=== PATIENT | female | born 1950 | race Caucasian/White ===

== ENCOUNTER → 2018-08-02 | Outpatient (CLI) | payer OTHER ==
[~2018-08-02] MED LIST: ADVAIR HFA 115-12 GM INH; ADVIL200 M1 PO; ALLEGRA60 MG PO; AMLODIPINE PO; BIAXIN500 MG PO; CARVEDILOL12.5 MG PO; CENTRUM SILVER1 EAC4 PO; CHEWABLE MULTI1 EAC1 PO; CLEOCIN HCL150 MG PO; COREG; DUONEB 2.5-0.5 M3 ML INH; FOLIC ACID1 MG PO; KLOR-CON 1010 MEQ PO; LEVAQUIN 500 M500 M2 PO; LEVAQUIN 750 M750 MG PO; LISINOPRIL10 MG; LISINOPRIL10 MG PO; LOPRESSOR100 M1 PO; MAGOX 400400 MG PO; MOBIC15 MG PO; MOBIC7.5 MG PO; NICOTINE TRANSD21 M1 TRANSDERM; NORCO 5-325 TA1 EACH PO; PEPCID20 MG PO; PREDNISONE 10 M10 MG PO; PREDNISONE 20 M20 MG PO; PRILOSEC40 MG PO; PRINIVIL; PRINIVIL10 MG PO; TRINATE TABLET1 TAB PO; VITAMIN B-1100 M1 PO; ZESTRIL20 MG PO
--- NOTE | 2018-08-05 12:05 | PATH ---
[address] [address] PATHOLOGY RPT PROCEDURE Name: COOPERSORAYA M Room: [facility].#: [id number] Admission: 08/02/18 Date of : 52 Discharge: Report #: [id number] Path Case #: [id number] [facility] Accession Number: [id number] . 01 Material submitted: . PART A: RIGHT BREAST STEREOTACTIC BIOPSY FOR CALCIFICATIONS PART B: RIGHT BREAST CALCIFICATIONS #2 . 01 Clinical history: . Right breast calcifications . 02 Diagnosis: A. Right breast calcifications, stereotactic biopsy: - Benign fat and fragments of benign skin, without calcifications and without breast epithelial tissues identified. See comment. . B. Right breast calcifications #2: - Benign breast tissue with focal usual ductal epithelial hyperplasia and focal sclerosing adenosis, with abundant luminal calcifications, negative for atypia. See comment. . (MARY:sd/attila; 08/04/2018) [facility]/08/04/2018 . 02 Comment: Specimens A and B reviewed with Dr. Wilton Kelsey who agrees with the diagnoses. . (MARY:mmruben; 08/04/2018) . 02 Electronically signed: . All Schwartz MD, Pathologist NPI- [id number] . 01 Gross description: . A. Received in formalin labeled "Soraya Gamboa, right breast calcifications," are multiple needle cores of yellow-ortiz fibrofatty tissue measuring 3.5 x 4.7 x 0.9 cm in aggregate dimensions. The tissue is submitted in its entirety in cassettes A1 through A4. The cold ischemic time is 5 minutes. The total formalin fixation time is more than 7 hours but less than 72 hours. . B. Received in formalin labeled "Soraya Gamboa, right breast calcifications 2," are multiple needle cores of yellow-ortiz fibrofatty tissue measuring 2.5 x 2.9 x 0.6 cm in aggregate dimensions. Additionally received in the container is a blue plastic cassette containing multiple needle cores of yellow-ortiz fibrofatty tissue measuring 2.0 x 0.7 x 0.4 cm in aggregate dimensions. The tissue in [place] [address] PATHOLOGY RPT PROCEDURE Name: SORAYA GAMBOA Room: [facility]#: [id number] Admission: 08/02/18 Date of : 52 Discharge: Report #: [id number] Path Case #: [id number] cassette B3 and the remaining tissue is submitted in its entirety in cassettes B1 and B2. The cold ischemic time is 19 minutes. The total formalin fixation time is more than 7 hours but less than 72 hours. (TSD; 08/02/2018) TOB/TOB . 02 Pathologist provided ICD-10: R92.1, N62, N60.21 . 02 CPT . 641799, 776873 Specimen Comment: A courtesy copy of this report has been sent to Specimen Comment: [phone], , , . Specimen Comment: Report sent to DR REYNOLDS,DR MYRICK / DR GARCIA Specimen Comment: A duplicate report has been generated due to demographic updates. Performed at: 01 [facility] [id number] [facility] [address], [place], [place] [id number] MD Nitin Clinton MD Phone: [phone] Performed at: 02 [facility] [address], [place], [place] [id number] MD All Schwartz MD Phone: [phone]
== END | disposition home or self-care (01) ==
LOC: M.RAD 08-01 09:23
DX: N60.21 Fibroadenosis of right breast (principal); N60.81 Other benign mammary dysplasias of right breast; R92.0 Mammographic microcalcification found on diagnostic imaging of breast

== ENCOUNTER 2018-09-09 20:07 | Emergency (ER) | payer OTHER ==
[~2018-09-09] VITALS: Ht 175.3 cm; Wt 49.4 kg
[2018-09-09] MEDS ORDERED: TYLENOL325 M1 PO (20:22)
[2018-09-09] MEDS ORDERED: ASPIRIN81 M2 PO (20:22)
[2018-09-09] MEDS ORDERED: PLAVIX 75 MG TA75 M1 PO (20:23)
[2018-09-09] MEDS ORDERED: LIPITOR10 MG PO (20:23)
[2018-09-09] MEDS ORDERED: MIRALAX17 GM PO (20:24)
[2018-09-09] MEDS ORDERED: OXYCODONE HCL 55 MG PO (20:24)
[2018-09-09] MEDS ORDERED: PRINIVIL10 MG PO (20:24)
[2018-09-09] MEDS ORDERED: SENOKOT-S1 TA2 PO (20:25)
[2018-09-09 20:30] LABS: ABSOLUTE EOSINOPHILS 0.2 thou/uL (0.0-0.7); ABSOLUTE LYMPHOCYTES 0.9 thou/uL (0.8-5.3); ABSOLUTE MONOCYTES 0.8 thou/uL (0.0-1.2); BASOPHILS 0.4 %; EOSINOPHILS 2.3 %; HEMATOCRIT 28.1 % (37.0-47.0); HEMOGLOBIN 9.9 gm/dL (12.0-15.0); LYMPHOCYTES 13.1 %; MCH 34.4 pg (26.0-34.0); MCHC 35.2 g/dL (28.0-37.0); MCV 97.6 fL (80.0-100.0); MPV 7.1 fl. (7.2-11.1); NUCLEATED RBCS 0 /100WBC; PLATELET COUNT* 149 thou/uL (150-400); POLYS 73.2 %; RBC 2.88 mil/uL (4.20-5.00); RDW-CV 13.6 % (10.5-14.5); WBC 6.8 thou/uL (4.0-11.0)
[2018-09-09 20:37] LABS: PROTIME 10.7 Seconds (9.20-11.50)
[2018-09-09 20:47] LABS: ANION GAP 10 mmol/L (7-16); BUN 8 mg/dL (7-18); CALCIUM 7.7 mg/dL (8.5-10.1); CHLORIDE 96 mmol/L (98-107); CO2 25 mmol/L (21-32); CREATININE 0.7 mg/dL (0.6-1.3); GLUCOSE 121 mg/dL (70-99); POTASSIUM 3.5 mmol/L (3.5-5.1); SODIUM 131 mmol/L (136-145); TROPONIN-I LEVEL <0.06 ng/mL (<0.06)
[2018-09-09 20:53] LABS: ALBUMIN 2.7 g/dL (3.4-5.0); ALKALINE PHOSPHATASE 58 U/L (46-116); NT-PRO BRAIN NAT PEPTIDE 401 pg/mL (<300); SGOT 16 U/L (15-37); SGPT 9 U/L (30-65); TOTAL BILIRUBIN 0.9 mg/dL (<0.1-1.0); TOTAL PROTEIN 5.5 g/dL (6.4-8.2)
[2018-09-09 22:39] LABS: URINE BILIRUBIN NEGATIVE (Negative); URINE BLOOD 1+ (Negative); URINE CLARITY CLEAR; URINE COLOR YELLOW; URINE GLUCOSE-RANDOM NEGATIVE (Negative); URINE KETONES 1+ (Negative); URINE LEUKOCYTES-REFLEX TRACE (Negative); URINE NITRITE-REFLEX NEGATIVE (Negative); URINE PROTEIN NEGATIVE (Negative); URINE SPECIFIC GRAVITY <= 1.005 (1.005-1.030); URINE UROBILINOGEN 0.2 E.U./dl (0.2-1.0)
[2018-09-09 23:53] LABS: CASTS None Seen /LPF (None Seen); SQUAMOUS 0-3 Few /LPF (0-3)
[2018-09-09 23:54] LABS: BACTERIA-REFLEX 1-9 Few /HPF (None Seen); CRYSTALS None Seen /LPF (None Seen); URINE RBC 3-10 Few /HPF (0-2); URINE WBC-REFLEX 0-5 Rare /HPF (0-5)
[2018-09-10 03:00] VITALS: BP 121/49
--- NOTE | 2018-09-10 10:49 | EKG ---
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 : 1950 Requested By: Magalys Lynch Order Number: [id number] MD: Kendrick Rocha Measurements Intervals [place] Rate: 70 P: 86 SC: 151 QRS: 64 QRSD: 93 T: 64 QT: 379 QTc: 409 Interpretive Statements Sinus rhythm Atrial premature complex Low voltage, extremity leads Compared to ECG 08/23/2015 17:43:13 Atrial premature complex(es) now present Low QRS voltage now present Electronically Signed On 09-10-2018 10:49:03 CDT by Kendrick Rocha [email or web address] <ELECTRONICALLY SIGNED> By: Kendrick Rocha MD, FAC 09/10/18 1049 14 14 Kendrick Rocha MD, [facility] /EPI
== END 2018-09-10 03:00 | disposition short-term general hospital (02) ==
LOC: M.ERS 20:07
PROVIDERS: Emergency Medicine
DX: I74.5 Embolism and thrombosis of iliac artery (principal); R42 Dizziness and giddiness; F17.210 Nicotine dependence, cigarettes, uncomplicated; I10 Essential (primary) hypertension; Z90.49 Acquired absence of other specified parts of digestive tract; Z90.710 Acquired absence of both cervix and uterus; Z88.0 Allergy status to penicillin; Z90.89 Acquired absence of other organs

== ENCOUNTER → 2020-02-12 | Outpatient (CLI) | payer MEDICARE ==
[~2020-02-12] MED LIST changes: +ASPIRIN81 M2 PO; +LIPITOR10 MG PO; +MIRALAX17 GM PO; +OXYCODONE HCL 55 MG PO; +PLAVIX 75 MG TA75 M1 PO; +SENOKOT-S1 TA2 PO; +TYLENOL325 M1 PO
== END ==
LOC: M.RAD 09:00
PROVIDERS: ATTEND Internal Medicine
DX: Z12.31 Encounter for screening mammogram for malignant neoplasm of breast (principal); N95.1 Menopausal and female climacteric states; M81.0 Age-related osteoporosis without current pathological fracture